=== PATIENT | female | born 1960 | race Caucasian/White ===

== ENCOUNTER → 2017-11-01 08:55 | Outpatient (CLI) | payer OTHER, SELFPAY ==
--- NOTE | 2017-11-01 09:02 | US_ITS ---
US thyroid HISTORY: Difficulty swallowing, thyromegaly ITS.REASON: THYROMEGALY ORDERING PHYSICIAN: Damari Greene PATIENT AGE: 57 years Comparison: None FINDINGS: The right lobe is 4.5 x 1.5 x 2 cm. 9 mm mostly cystic lesion upper pole 7 mm cyst lower pole Ill-defined hypoechoic nodule lower pole 7 mm The left lobe is 4.3 x 1.2 x 2.1 cm 6 mm cyst upper pole 5 mm iso to slightly hypoechoic nodule mid polar region IMPRESSION: Mildly enlarged thyroid gland with bilateral nodules with low-level suspicion of malignancy. Consider 6 month follow-up to confirm stability
== END ==
PROVIDERS: Family Provider Nurse Practitioner Family; PCP Family Medicine; Visit Provider Nurse Practitioner Family
DX: E01.0 Iodine-deficiency related diffuse (endemic) goiter (principal)
CPT/HCPCS: 76536

== ENCOUNTER → 2019-02-11 13:26 | Outpatient (POV) | payer OTHER, SELFPAY | PROVIDERS: Visit Provider Dermatology | DX: Z00.00 Encounter for general adult medical examination without abnormal findings (principal) ==

== ENCOUNTER 2023-06-13 11:00 | Outpatient (RCR) | payer OTHER, SELFPAY | END 2023-06-13 12:00 | disposition home or self-care (01) | LOC: OT 11:00 | PROVIDERS: Visit Provider Physician Assistant Medical | DX: M25.532 Pain in left wrist (principal); M67.834 Other specified disorders of tendon, left wrist; M77.8 Other enthesopathies, not elsewhere classified | CPT/HCPCS: 97010; 97014; 97035; 97140; 97165; G0283 ==

== ENCOUNTER 2024-04-29 16:29 | Outpatient (CLI) | payer MEDICARE, SELFPAY ==
--- OUTSIDE RECORDS SUMMARY | 2024-04-29 16:32 | XMS_ITS | Clinical Summary ---
Author Organization [facility] , [facility] Address [address] [place] [address] Phone Care Team Providers Care Assembler Watch Train Name Role Phone KATHLEEN DAVID Unavailable [phone] Ran Thomason MD Unavailable [phone] Reason for Visit and Chief Complaint The Chief Complaint is: left hand & wrist pain Problems Includes: Problems addressed during this encounter and other active Problems Current Visit Onset Date Resolved Date Provider Flori Sapp Joint Pain in the Left Wrist 2023 Usama ZEPEDA-Azeb Active Last Documented On 4 8:21AM ; [facility] Pain in the Left Hand Only 2023 Usama virgen PA-C Active Last Documented On 4 8:21AM ; [facility], [facility] Plan of Treatment Pending Tests Order Diagnosis Results Due Ordering P rovider Therapy - Occupational Therapy Hand Overweight 08/22 Usama Galloway PA-C Last Documented On 4 9:29AM ; [facility] Therapy - Occupational Therapy Wrist Overweight 08/22 Usama ZEPEDA-C Last Documented On 4 9:29AM ; [facility], [facility] Instructions to patient Lose weight Last Documented On 4 8:29AM ; [facility], [facility] Assessments Includes: Assessments from this encounter Findings - Overweight - Last Documented On 2023 1:01PM ; [facility], [facility] Instructions Includes: Instructions from this encounter Instructions to patient Lose weight Last Documented On 4 8:29AM ; [facility], [facility] Medical Equipment - Implanted Devices Includes: Current Devices No Medical Equipment Recorded Medications Includes: Medications discussed during this encounter and other current Medications Current Medications (continue as prescribed) Ozempic (1 MG/DOSE) 4 MG/3ML Subcutaneous Solution Pen-injector 08/20/2023 Provider: KATHLEEN DAVID Diagnosis: Last Documented On 4 8:27AM By Harleen Naik ; DHIRAJ BRODY Jardiance 25 MG Oral Tablet 06/29/2023 Provider: Diagnosis: Last Documented On 4 8:27AM By Harleen Naik ; [facility] Medications Administered Includes: Administered Medications from this encounter No Administered Medications Recorded Vital Signs Includes: Vital Signs from this encounter Vital Name 2023 08:28A Height (in) 66 Weight (lb) 190 Body Mass Index 30.7 Body Surface Area 2 Note: KL Last Documented: On 2023 8:28AM ; [facility] Results Includes: Results discussed during this encounter No Results Recorded For Specified Dates History of Present Illness Includes: History of Present Illness from this encounter HPI MILTON VILLAR is a 62 year old female. - Symptoms other not listed. - Allergy list reviewed - Medication list reviewed - Previous history of new onset pain 02/28/2023 - Pain is occasional (25% of the time) - Patient pain level from 1-10: 4 - Yes, previous treatment. MILTON ARMSTRONG - History of Physical Therapy 62-year-old female here for evaluation of her left wrist pain. This is work- related injury. 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 She has had volar ulnar-sided wrist pain since then. The patient states that she is done about 8 weeks of hand therapy which has provided no relief. Her pain is no better no worse. No numbness or tingling. 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 Social History Description Last Updated Caffeine use 2023 Last Documented On 4 1:01PM ; [facility], [facility] No recent change in diet 2023 Last Documented On 4 1:01PM ; DHIRAJ BRODY Not a current smoker. 2023 Last Documented On 4 1:01PM ; [facility] Not exercising regularly 2023 Last Documented On 4 1:01PM ; [facility], [facility] Not using alcohol 2023 Last Documented On 4 1:01PM ; [facility], [facility] Not using drugs 2023 Last Documented On 4 1:01PM ; [facility], [facility] Tobacco non-user 2023 Last Documented On 4 1:01PM ; [facility], [facility] Smoking Status Unknown Procedures and Surgical History Includes: Procedures from this encounter Procedures Code Diagnosis Performing Provider Service Location Service Date DRAIN/INJECT, JOINT/BURSA (LEFT) Pain in left [facility] 2023 Last Documented On 4 2:36PM ; [facility], [facility] Injection, betamethasone acetate 6mg per cc and betamethason J0702 Pain in left wrist Feliciano Levy MD [facility] 2023 Last Documented On 4 2:36PM ; [facility], [facility] Ultrasonic guidance for needle placement (LEFT, Distinct procedure) 72800 Pain in left wrist Feliciano Levy MD [facility] 2023 Last Documented On 4 2:36PM ; [facility], [facility] X-RAY EXAM OF WRIST 3-5 VIEWS (LEFT) 43276 Pain in left wrist [facility] 2023 Last Documented On 4 2:36PM ; [facility], [facility] use of tobacco assessment performed 1000F Last Documented On 4 8:29AM ; [facility], [facility] review of medications documented 1160F Last Documented On 4 8:29AM ; [facility], [facility] Surgical History Last Updated History of appendectomy 2023 Last Documented On 4 1:01PM ; [facility], [facility] Medical History Includes: Medical History addressed during this encounter Description Last Updated Past medical and surgical history non-co ntributory 2023 Last Documented On 4 1:01PM ; [facility] History of diabetes mellitus 2023 Last Documented On 4 1:01PM ; [facility] Family History Includes: Family History addressed during this encounter Description Last Updated Diabetes mellitus 2023 Last Documented On 4 1:01PM ; [facility] Review of Systems Includes: Review of Systems from this encounter Systemic: Not feeling tired, no recent weight loss, and no recent weight gain. Head: Headache. No sinus pain. Eyes: No vision problems, no Cataracts, no Glasses/Contacts, and no Glaucoma. Otolaryngeal: No hearing loss and no tinnitus. Cardiovascular: No chest pain or discomfort, no palpitations, no Hypertension, and no High Cholesterol. Pulmonary: No daytime asthma symptoms and no chronic cough. No wheezing. Gastrointestinal: No heartburn and no abdominal pain. No Indigestion, no Acid Reflux, no Peptic Ulcer, no GI Stomach Bleed, and no Ulcers. Endocrine: No hot flashes and no muscle weakness. Diabetes. No Hypothyroid and no Hyperthyroid. Hematologic: No easy bleeding, no tendency for easy bruising, and no Anemia. Musculoskeletal: No Arthritis. Lower back pain. No soft tissue swelling and no localized joint pain. Neurological: No dizziness, no convulsions, and no numbness. Psychological: No anxiety, no emotional lability, no depression, and no insomnia. Not crying for no reason. Skin: No dry skin. No Ulcers, no Scars, and no rash. Allergic and Immunologic: Complaint of seasonal allergic reaction. Mental Status Includes: Mental Status from this encounter Description No anxiety Functional Status Includes: Functional Status from this encounter No Functional Status Recorded Physical Exam Includes: Physical Exam from this encounter Allergies Includes: Active Allergies Substance Type Reaction Onset Date Resolved Date Statu s Sulfa Antibiotics Allergy 2023 A ctive Last Documented On 4 8:45AM ; [facility] microbid Allergy 2023 Active Last Documented On 4 8:45AM ; [facility] metFORMIN HCl Allergy 2023 Activ e Last Documented On 4 8:45AM ; [facility] Encounters Encounter Provider Location Date Check-In Time Check-Out Time Diagnosis WORK COMP Usama Galloway PA-C [facility] 4 8:18AM 9:26AM Overweight Insurance Includes: Active Insurance Policies Plan Name Member ID Group # Subscriber Relationship Effect farnaz Dates 1 - [facility] [employer] [place]. [id number] MILTON VILLAR Self 02/20/2023 - Unknown 2 - [employer] [id number] MILTON VILLAR Self Clinical Notes Includes: Clinical Notes from this encounter * Progress note Date Encounter Last Documented by 2023 WORK COMP Last documented on 2023; 1:01 PM, Usama Bowie; [facility], [facility] Active Problems & Conditions - Joint Pain in the Left Wrist - Pain in the Left Hand Only Chief Complaint The Chief Complaint is: Left hand & wrist pain. History of Present Illness MILTON VILLAR is a 62 year old female. - Symptoms other not listed. - Allergy list reviewed - Medication list reviewed - Previous history of new onset pain 02/28/2023 - Pain is occasional (25% of the time) - Patient pain level from 1-10: 4 - Yes, previous treatment. MILTON ARMSTRONG - History of Physical Therapy 62-year-old female here for evaluation of her left wrist pain. This is work- related injury. 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 She has had volar ulnar-sided wrist pain since then. The patient states that she is done about 8 weeks of hand therapy which has provided no relief. Her pain is no better no worse. No numbness or tingling. 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 Current Medication - Jardiance 25 MG Oral Tablet 90 days, 0 refills - Ozempic (1 MG/DOSE) 4 MG/3ML Subcutaneous Solution Pen-injector 84 days, 0 refills Past Medical/Surgical History Diagnoses: Diabetes mellitus Past medical and surgical history non-contributory. Surgical: - Appendectomy Social History Not a current smoker. Current diet: No recent change in diet. Caffeine use: Caffeine use. Tobacco use: Tobacco non-user. Alcohol: Not using alcohol. Drug Use: Not using drugs. Habits: Not exercising regularly. Allergies - metFORMIN HCl - microbid - Sulfa Antibiotics Family History Diabetes mellitus Review Of Systems Systemic: Not feeling tired, no recent weight loss, and no recent weight gain. Head: Headache. No sinus pain. Eyes: No vision problems, no Cataracts, no Glasses/Contacts, and no Glaucoma. Otolaryngeal: No hearing loss and no tinnitus. Cardiovascular: No chest pain or discomfort, no palpitations, no Hypertension, and no High Cholesterol. Pulmonary: No daytime asthma symptoms and no chronic cough. No wheezing. Gastrointestinal: No heartburn and no abdominal pain. No Indigestion, no Acid Reflux, no Peptic Ulcer, no GI Stomach Bleed, and no Ulcers. Endocrine: No hot flashes and no muscle weakness. Diabetes. No Hypothyroid and no Hyperthyroid. Hematologic: No easy bleeding, no tendency for easy bruising, and no Anemia. Musculoskeletal: No Arthritis. Lower back pain. No soft tissue swelling and no localized joint pain. Neurological: No dizziness, no convulsions, and no numbness. Psychological: No anxiety, no emotional lability, no depression, and no insomnia. Not crying for no reason. Skin: No dry skin. No Ulcers, no Scars, and no rash. Allergic and Immunologic: Complaint of seasonal allergic reaction. Physical Findings - Vitals taken 2023 08:28 am KL Height 66 in Weight 190 lbs Body Mass Index 30.7 kg/m2 Body Surface Area 2 m2 PHYSICAL EXAM: CONSTITUTIONAL: Well developed, well groomed, well nourished patient in no acute distress who appears stated age, height and weight. PSYCHIATRIC: The patient is alert and oriented to person, place, date and situation. Mood and affect are normal for current situation. NEUROLOGICAL: Sensation normal bilateral upper and lower extremities. LYMPHATIC: No pitting edema noted in the lower extremities. SKIN: No lesions noted on upper or lower extremities. Skin is dry, warm and with normal turgor. VASCULAR: No swelling in upper or lower extremities other than described below in extremity exam. Pulses normal in both upper (radial) extremities. GAIT AND STATION: Normal gait without assistive devices. Station normal. LEFT WRIST/HAND: Able to make a full composite fist Able to fully flex and extend all fingers Hand is warm and well perfused Sensation intact to light touch distally in all nerve distributions Tenderness to palpation over the FCU tendon and pisiform. Wrist active range of motion and is within normal limits 4+ out of 5 left ulnar deviation and flexion due to pain otherwise 5/5 User Defined 5 Three-view x-ray of the left wrist shows mild degenerative changes, carpal alignment is within normal limits, no obvious acute bony abnormality. 62-year-old female with left FCU tendinitis that started back in January 2023. She is tried 2 months of therapy, she has been using a thermoplastic wrist extension brace. The patient's symptoms are no better no worse than they were on the onset of injury. This is a work-related injury. I am recommending a left FCU steroid injection under ultrasound guidance, she agrees to proceed with this today. She will follow-up in 6 weeks for another clinical recheck. I will also make another referral for occupational therapy. She understands to avoid painful activity and to wear her brace to help rest the tendon. Limited, anatomic specific diagnostic ultrasound of the left wrist was performed with a 4-18 MHz linear array transducer. Ultrasound was utilized for needle guidance and placement. I visualized the structures of the ulnar volar wrist to include the FCU, pisiform and ulnar artery. The needle was placed superficial to the FCU tendon and I injected 0.5 cc of 1% lidocaine without epinephrine and 0.5 cc of betamethasone into the tendon sheath of the FCU. Assessment - Overweight Counseling/Education - Lose weight Plan StartCited - Overweight Therapy/Occupational Therapy: Hand, Wrist Instructions: See PT order attached EndCited Practice Management Use of tobacco assessment performed Review of medications documented. Care Team - KATHLEEN DAVID
--- OUTSIDE RECORDS SUMMARY | 2024-04-29 16:32 | XMS_ITS | Clinical Summary ---
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 Name Role Phone KATHLEEN DAVID Unavailable [phone] Ran Thomason MD Unavailable [phone] Reason for Visit and Chief Complaint The Chief Complaint is: left hand & wrist pain Problems Includes: Problems addressed during this encounter and other active Problems All Visits Onset Date Resolved Date Provider Condition S tatus Joint Pain in the Left Wrist 2023 Usama Galloway PA-C Active Last Documented On 4 8:21AM ; [facility] Pain in the Left Hand Only 2023 Usama virgen PA-C Active Last Documented On 4 8:21AM ; [facility] Plan of Treatment Instructions to patient Lose weight Last Documented On 4 8:45AM ; [facility] Assessments Includes: Assessments from this encounter Findings - Overweight - Last Documented On 10/04/2023 1:27PM ; [facility] Instructions Includes: Instructions from this encounter Instructions to patient Lose weight Last Documented On 4 8:45AM ; [facility] Medical Equipment - Implanted Devices Includes: Current Devices No Medical Equipment Recorded Medications Includes: Medications discussed during this encounter and other current Medications Current Medications (continue as prescribed) Ozempic (1 MG/DOSE) 4 MG/3ML Subcutaneous Solution Pen-injector 08/20/2023 Provider: KATHLEEN DAVID Diagnosis: Last Documented On 4 8:27AM By Harleen Naik ; [facility], [facility] Jardiance 25 MG Oral Tablet 06/29/2023 Provider: Diagnosis: Last Documented On 4 8:27AM By Harleen Naik ; [facility], [facility] Medications Administered Includes: Administered Medications from this encounter No Administered Medications Recorded Vital Signs Includes: Vital Signs from this encounter Vital Name 10/04/2023 08:46A Height (in) 66 Weight (lb) 190 Body Mass Index 30.7 Body Surface Area 2 Note: KL Last Documented: On 10/04/2023 8:46AM ; [facility], [facility] Results Includes: Results discussed during this encounter No Results Recorded For Specified Dates History of Present Illness Includes: History of Present Illness from this encounter HPI MILTON VILLAR is a 63 year old female. - Symptoms other not listed. - Allergy list reviewed - Problem list reviewed - Medication list reviewed - Previous history of new onset pain 02/28/2023 - Pain is occasional (25% of the time) - Patient pain level from 1-10: 4 - Yes, previous treatment. MILTON ARMSTRONG - History of Physical Therapy 63-year-old Female here for follow-up of her left FCU tendinitis. She had an ultrasound-guided FCU injection at last visit. The patient states she has had a robust improvement of her wrist pain. She is having no symptoms at this time. The patient was referred to hand therapy, but was unable to attend as she states that worker's comp did not confirm their approval of therapy. She feels ready to return to work. Social History Description Last Updated Caffeine use 2023 Last Documented On 4 8:45AM ; [facility], [facility] No recent change in diet 2023 Last Documented On 4 8:45AM ; [facility], [facility] Not a current smoker. 2023 Last Documented On 4 8:45AM ; [facility], [facility] Not exercising regularly 2023 Last Documented On 4 8:45AM ; [facility], [facility] Not using alcohol 2023 Last Documented On 4 8:45AM ; [facility], [facility] Not using drugs 2023 Last Documented On 4 8:45AM ; [facility], [facility] Tobacco non-user 2023 Last Documented On 4 8:45AM ; [facility] Smoking Status Unknown Procedures and Surgical History Includes: Procedures from this encounter Procedures Code Diagnosis Performing Provider Service L ocation Service Date use of tobacco assessment performed 1000F Last Documented On 4 8:45AM ; [facility] review of medications documented 1160F Last Documented On 4 8:45AM ; [facility] Surgical History Last Updated History of appendectomy 2023 Last Documented On 4 8:45AM ; [facility] Medical History Includes: Medical History addressed during this encounter Description Last Updated Past medical and surgical history non-co ntributory 2023 Last Documented On 4 8:45AM ; [facility] History of diabetes mellitus 2023 Last Documented On 4 8:45AM ; [facility] Family History Includes: Family History addressed during this encounter Description Last Updated Diabetes mellitus 2023 Last Documented On 4 8:45AM ; [facility] Review of Systems Includes: Review of [...] ctive Last Documented On 4 8:45AM ; [facility], [facility] microbid Allergy 2023 Active Last Documented On 4 8:45AM ; [facility], [facility] metFORMIN HCl Allergy 2023 Activ e Last Documented On 4 8:45AM ; [facility], [facility] Encounters Encounter Provider Location Date Check-In Time Check-Out Time Diagnosis WC FOLLOW UP/EST Usama Galloway PA-C [facility] 10/04/19 24 8:43AM 8:59AM Overweight Insurance Includes: Active Insurance Policies Plan Name Member ID Group # Subscriber Relationship Effect farnaz Dates 1 - [facility] [employer] [place] [id number] MILTON VILLAR Self 02/20/2023 - Unknown 2 - [employer] [id number] MILTON VILLAR Self Clinical Notes Includes: Clinical Notes from this encounter * Progress note Date Encounter Last Documented by 10/04/2023 WC FOLLOW UP/EST Last documented on 10/04/2023; 1:27 PM, Usama Galloway PA-C; [facility], [facility] Active Problems & Conditions - Joint Pain in the Left Wrist - Pain in the Left Hand Only Chief Complaint The Chief Complaint is: Left hand & wrist pain. History of Present Illness MILTON VILLAR is a 63 year old female. - Symptoms other not listed. - Allergy list reviewed - Problem list reviewed - Medication list reviewed - Previous history of new onset pain 02/28/2023 - Pain is occasional (25% of the time) - Patient pain level from 1-10: 4 - Yes, previous treatment. MILTON ARMSTRONG - History of Physical Therapy 63-year-old Female here for follow-up of her left FCU tendinitis. She had an ultrasound-guided FCU injection at last visit. The patient states she has had a robust improvement of her wrist pain. She is having no symptoms at this time. The patient was referred to hand therapy, but was unable to attend as she states that worker's comp did not confirm their approval of therapy. She feels ready to return to work. Current Medication - Jardiance 25 MG Oral [...] allergic reaction. Physical Findings - Vitals taken 10/04/2023 08:46 am KL Height 66 in Weight 190 [...] light touch distally in all nerve distributions NONTENDER TO PALPATION Flexion: 90 degrees Extension: 70 degrees Pronation: 90 degrees Supination: 90 degrees Strength: 5/5 wrist flexion, 5/5 extension, 5/5 supination, 5/5 pronation. 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 She had a robust improvement after the injection. 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 She is nontender. I will release her to work without restriction and she may follow up as needed moving forward. Assessment - Overweight Counseling/Education - Lose weight Practice Management Use of tobacco assessment performed Review of medications documented. Care Team - KATHLEEN DAVID
--- OUTSIDE RECORDS SUMMARY | 2024-04-29 16:32 | XMS_ITS | Clinical Summary ---
Author Organization [facility] Address [address] [place] [phone] Phone Care Team Providers Care Quality Control Scientist Name Role Phone JOANN KATHLEEN Unavailable [phone] Ran Thomason MD Unavailable [phone] Reason for Visit and Chief Complaint WC MRA Problems Includes: Problems addressed during this encounter and other active Problems All Visits Onset Date Resolved Date Provider Condition S tatus Joint Pain in the Left Wrist 2023 Usama Galloway PA-C Active Last Documented On 4 8:21AM ; [facility], [facility] Pain in the Left Hand Only 2023 Usama virgen PA-C Active Last Documented On 4 8:21AM ; [facility], [facility] Plan of Treatment No Plan of Treatment Recorded Assessments Includes: Assessments from this encounter No Assessments Recorded Medical Equipment - Implanted Devices Includes: Current Devices No Medical Equipment Recorded Medications Includes: Medications discussed during this encounter and other current Medications Current Medications (continue as prescribed) Ozempic (1 MG/DOSE) 4 MG/3ML Subcutaneous Solution Pen-injector 08/20/2023 Provider: KATHLEEN DAVID Diagnosis: Last Documented On 4 8:27AM By Harleen WALDROP [facility], [facility] Jardiance 25 MG Oral Tablet 06/29/2023 Provider: Diagnosis: Last Documented On 4 8:27AM [facility] Medications Administered Includes: Administered Medications from this encounter No Administered Medications Recorded Results Includes: Results discussed during this encounter No Results Recorded For Specified Dates History of Present Illness Includes: History of Present Illness from this encounter No History of Present Illness Recorded Social History No Social History Recorded - Smoking Status Unknown Procedures and Surgical History Includes: Procedures from this encounter Procedures Code Diagnosis Performing Provider Service Location Service Date mri upper extremity joint, with contrast (LEFT) 91150 Pain in left wrist Ayden Davalos MD [facility] 07/30/2023 Last Documented On 4 9:12AM ; [facility] INJECTION FOR WRIST X-RAY (LEFT, Distinct procedure) 12276 Pain in left wrist Ayden Davalos MD [facility] 07/30/2023 Last Documented On 4 9:12AM ; [facility] OMIPAQUE Q9965 Pain in left wrist Ayden Davalos MD [facility] 07/30/2023 Last Documented On 4 9:12AM ; [facility] Fluoroscopic guidance for needle placement (Distinct procedure) 24086 Pain in left wrist Ayden Davalos MD [facility] 07/30/2023 Last Documented On 4 9:12AM ; [facility] Medical History Includes: Medical History addressed during this encounter No Medical History Recorded Family History Includes: Family History addressed during this encounter No Family History Recorded Review of Systems Includes: Review of Systems from this encounter No Review of Systems Recorded Mental Status Includes: Mental Status from this encounter No Mental Status Recorded Functional Status Includes: Functional Status from this encounter No Functional Status Recorded Physical Exam Includes: Physical Exam from this encounter No Physical Exam Recorded Allergies Includes: Active Allergies Substance Type Reaction Onset Date Resolved Date Statu s Sulfa Antibiotics Allergy 2023 A ctive Last Documented On 4 8:45AM ; [facility] microbid Allergy 2023 Active Last Documented On 4 8:45AM ; [facility] metFORMIN HCl Allergy 2023 Activ e Last Documented On 4 8:45AM ; [facility] Encounters Encounter Provider Location Date Check-In Time Check- Out Time Diagnosis WC [facility] Ayden Davalos MD [facility] 4 1:49PM 2:39PM Insurance Includes: Active Insurance Policies Plan Name Member ID Group # Subscriber Relationship Effect farnaz Dates 1 - [facility] [employer] [id number] MILTON Mendoza 02/20/2023 - Unknown 2 - [employer] [id number] MILTON Mendoza Clinical Notes Includes: Clinical Notes from this encounter No Clinical Notes Recorded
--- OUTSIDE RECORDS SUMMARY | 2024-04-29 16:32 | XMS_ITS ---
Author Organization [facility] , [facility] Address [address] [place] [address] Phone Care Team Providers Care Rapid Extractor Operator Name Role Phone KATHLEEN DAVID Unavailable [phone] Ran Thomason MD Unavailable [phone] Problems Includes: Active, inactive, and resolved Problems All Visits Onset Date Resolved Date Provider Condition S tatus Joint Pain in the Left Wrist 2023 Usama Galloway PA-C Active Last Documented On 4 8:21AM ; [facility], [facility] Pain in the Left Hand Only 2023 Usama virgen PA-C Active Last Documented On 4 8:21AM ; [facility], [facility] Plan of Treatment Instructions to patient Lose weight Last Documented On 4 8:45AM ; [facility], [facility] Lose weight Last Documented On 4 8:29AM ; [facility], [facility] Assessments Includes: Assessments for all patient encounters Findings Encounter Date Overweight WC FOLLOW UP/EST with Usama darling PA-C 10/04/2023 Last Documented On 4 1:27PM ; [facility], [facility] Overweight WORK COMP with Usama Garcia 2023 Last Documented On 4 1:01PM ; [facility], [facility] Instructions Includes: Instructions for all patient encounters Instructions to patient Lose weight Last Documented On 4 8:45AM ; [facility], [facility] Lose weight Last Documented On 4 8:29AM ; [facility], [facility] Medical Equipment - Implanted Devices Includes: Current and historical Devices No Medical Equipment Recorded Medications Includes: Current and historical Medications Current Medications (continue as prescribed) Ozempic (1 MG/DOSE) 4 MG/3ML Subcutaneous Solution Pen-injector 08/20/2023 Provider: KATHLEEN DAVID Diagnosis: Last Documented On 4 8:27AM By Harleen Naik ; [facility] Jardiance 25 MG Oral Tablet 06/29/2023 Provider: Diagnosis: Last Documented On 4 8:27AM By Harleen Naik ; [facility] Medications Administered Includes: Administered Medications in patient's chart No Administered Medications Recorded Vital Signs Includes: Vital Signs from 04/29/2023 through 04/29/2024 Vital Name 10/04/2023 08:46A 2023 08: 28A Height (in) 66 66 Weight (lb) 190 190 Body Mass Index 30.7 30.7 Body Surface Area 2 2 Note: KL KL Last Documented: On 10/04/2023 8:46AM ; [facility] On 2023 8:28AM ; [facility], [facility] Results Includes: Results from 04/29/2023 through 04/29/2024 No Results Recorded For Specified Dates History of Present Illness History of Present Illness not supported for this document type No History of Present Illness Recorded Social History Description Last Updated Caffeine use 2023 Last Documented On 4 1:01PM ; [facility] No recent change in diet 2023 Last Documented On 4 1:01PM ; [facility] Not a current smoker. 2023 Last Documented On 4 1:01PM ; [facility], [facility] Not exercising regularly 2023 Last Documented On 4 1:01PM ; [facility], [facility] Not using alcohol 2023 Last Documented On 4 1:01PM ; [facility], [facility] Not using drugs 2023 Last Documented On 4 1:01PM ; [facility], [facility] Tobacco non-user 2023 Last Documented On 4 1:01PM ; [facility] Smoking Status Unknown Procedures and Surgical History Includes: Procedures from 04/29/2023 through 04/29/2024 Procedures Code Diagnosis Performing Provider Service Location Service Date DRAIN/INJECT, JOINT/BURSA (LEFT) Pain in left wrist Feliciano Levy MD [facility] 2023 Last Documented On 4 2:36PM ; [facility], [facility] Injection, betamethasone acetate 6mg per cc and betamethason J0702 Pain in left wrist Feliciano Levy MD [facility] 2023 Last Documented On 4 2:36PM ; [facility], [facility] X-RAY EXAM OF WRIST 3-5 VIEWS (LEFT) 95110 Pain in left wrist Feliciano Levy MD [facility] 2023 Last Documented On 4 2:36PM ; [facility], [facility] Ultrasonic guidance for needle placement (LEFT, Distinct procedure) 78626 Pain in left wrist Feliciano Levy MD [facility] 2023 Last Documented On 4 2:36PM ; [facility], [facility] mri upper extremity joint, with contrast (LEFT) 06471 Pain in left wrist Ayden Davalos MD [facility] 07/30/2023 Last Documented On 4 9:12AM ; [facility], [facility] INJECTION FOR WRIST X-RAY (LEFT, Distinct procedure) 37214 Pain in left wrist Ayden Davalos MD [facility] 07/30/2023 Last Documented On 4 9:12AM ; [facility] OMIPAQUE Q9965 Pain in left wrist Ayden Davalos MD [facility] 07/30/2023 Last Documented On 4 9:12AM ; [facility], [facility] Fluoroscopic guidance for needle placement (Distinct procedure) 63768 Pain in left wrist Ayden Davalos MD [facility] 07/30/2023 Last Documented On 4 9:12AM ; [facility], [facility] Surgical History Last Updated History of appendectomy 2023 Last Documented On 4 1:01PM ; [facility], [facility] Medical History Includes: Medical History in patient's chart Description Last Updated Past medical and surgical history non-co ntributory 2023 Last Documented On 4 1:01PM ; [facility] History of diabetes mellitus 2023 Last Documented On 4 1:01PM ; [facility] Family History Includes: Family History in patient's chart Description Last Updated Diabetes mellitus 2023 Last Documented On 4 1:01PM ; [facility] Review of Systems Review of Systems not supported for this document type No Review of Systems Recorded Mental Status Description No anxiety Functional Status No Functional Status Recorded Physical Exam Physical Exam not supported for this document type No Physical Exam Recorded Allergies Includes: Active, inactive, and resolved Allergies Substance Type Reaction Onset Date Resolved Date Statu s Sulfa Antibiotics Allergy 2023 A ctive Last Documented On 4 8:45AM ; [facility] microbid Allergy 2023 Active Last Documented On 4 8:45AM ; [facility] metFORMIN HCl Allergy 2023 Activ e Last Documented On 4 8:45AM ; [facility] Encounters Includes: Encounters from 04/29/2023 through 04/29/2024 Encounter Provider Location Date Check-In Time Check-Out Time Diagnosis WC FOLLOW UP/EST Usama Galloway PA-C [facility] 10/04/19 24 8:43AM 8:59AM Overweight WORK COMP Usama Galloway PA-C [facility] 08/23/19 24 8:18AM 9:26AM Overweight WC MRA yAden Davalos MD [facility] 07/30/19 24 1:49PM 2:39PM Injections for MRA [facility] 07/30/19 24 1:49PM 11:59PM Insurance Includes: Active Insurance Policies Plan Name Member ID Group # Subscriber Relationship Effect farnaz Dates 1 - [employer] [id number] MILTON Mendoza 02/20/2023 - Unknown 2 - [employer] [id number] MILTON Mendoza Clinical Notes Includes: Signed Clinical Notes starting from 06/01/2022 * Progress note Date Encounter Last Documented by 10/04/2023 WC FOLLOW UP/EST Last documented on 10/04/2023; 1:27 PM, Usama Galloway PA-C; [facility], [facility] Active Problems & Conditions - Joint Pain [...] 5/5 extension, 5/5 supination, 5/5 pronation. Right slate mixer 65 lb (dominant hand) Left slate mixer 60 lb User Defined 5 63-year-old female with resolved left FCU tendinitis. She had a robust improvement after the injection. She is excellent slate mixer strength on the left. She is nontender. I will release her to work without restriction and she may follow up as needed moving forward. Assessment - Overweight Counseling/Education - Lose weight Practice Management Use of tobacco assessment performed Review of medications documented. Care Team - KATHLEEN DAVID * Progress note Date Encounter Last Documented by 2023 WORK COMP Last documented on 2023; 1:01 PM, Usama Bowie; [facility], [facility] Active Problems & Conditions - Joint Pain [...]
--- OUTSIDE RECORDS SUMMARY | 2024-04-29 16:32 | XMS_ITS ---
Care Plan - [facility] Created on: April 29, 2024 MILTON VILLAR : 1960 Sex: Female Author Organization [facility] Address [address] [place] [address] Phone Care Team Providers Care Tombstone Polisher Name Role Phone KATHLEEN DAVID Unavailable [phone] Paddy JAMES, Ran Larkin Unavailable [phone]
--- OUTSIDE RECORDS SUMMARY | 2024-04-29 16:32 | XMS_ITS | Clinical Summary ---
Author Organization [facility] , [facility] Address [address] [place] [phone] Phone Care Team Providers Care Repair Armature Winder Name Role Phone KATHLEEN DAVID Unavailable [phone] Ran Thomason MD Unavailable [phone] Reason for Visit and Chief Complaint Injections for MRA Problems Includes: Problems addressed during this encounter and other active Problems All Visits Onset Date Resolved Date Provider Condition S tatus Joint Pain in the Left Wrist 2023 Usama Galloway PA-C Active Last Documented On 4 8:21AM ; [facility] Pain in the Left Hand Only 2023 Usama virgen PA-C Active Last Documented On 4 8:21AM ; [facility], [facility] Plan of Treatment No Plan of [...] Last Documented On 4 8:27AM By Harleen Vasquez [facility], [facility] Jardiance 25 MG Oral Tablet 06/29/2023 Provider: Diagnosis: Last Documented On 4 8:27AM By Harleen Vasquez [facility], [facility] Medications Administered Includes: Administered Medications from this encounter No Administered Medications Recorded Results Includes: Results discussed during this encounter No Results Recorded For Specified Dates History of Present Illness Includes: History of Present Illness from this encounter No History of Present Illness Recorded Social History No Social History Recorded - Smoking Status Unknown Medical History Includes: Medical History addressed during [...] ctive Last Documented On 4 8:45AM ; [facility], [facility] microbid Allergy 2023 Active Last Documented On 4 8:45AM ; [facility] metFORMIN HCl Allergy 2023 Activ e Last Documented On 4 8:45AM ; [facility] Encounters Encounter Provider Location Date Check-In Time Check-Out Time Diagnosis Injections for MRA [facility] 4 1:49PM 11:59PM Insurance Includes: Active Insurance Policies Plan Name Member ID Group # Subscriber Relationship Effect farnaz Dates 1 - [facility] [employer] [id number] MILTON Mendoza 02/20/2023 - Unknown 2 - [employer] [id number] MILTON Mendoza Clinical Notes Includes: Clinical Notes from this encounter No Clinical Notes Recorded
[2024-04-29 18:55] LABS: Hemoglobin A1C 7.6 % (4.0-6.0)
[2024-04-29 18:59] LABS: Alanine Aminotransferase 38 U/L (12-78); Albumin Level 4.7 g/dl (3.5-5.0); Anion Gap 17.7 mEq/L (5-15); Aspartate Amino Transferase 36 U/L (14-36); Bilirubin,Total 0.6 mg/dl (0.2-1.3); Blood Urea Nitrogen 19 mg/dl (7-17); Calcium 9.6 mg/dl (8.4-10.2); Carbon Dioxide 22 mmol/L (22.0-30.0); Chloride 102 mmol/L (98-107); Estimated Glomerular Filt Rate 72 ml/min (>60); GFR (African American) 87 ML/MIN (>60); Glucose 132 mg/dl (74-100); Potassium 4.7 mmoL/L (3.5-5.1); Sodium 137 mmol/L (136-145); Total Protein,Serum 7.5 g/dl (6.3-8.2)
[2024-04-29 19:00] LABS: Albumin/Globulin Ratio 1.7 (1.1-1.8); Alkaline Phosphatase 74 U/L (38-126); Globulin 2.8 g/dL (1.3-3.2)
[2024-04-29 19:33] LABS: Thyroid Stimulating Hormone 2.11 uIU/mL (0.465-4.68)
[2024-04-29 19:37] LABS: Ferritin 51.1 ng/ml (11.1-264)
[2024-04-30 17:26] LABS: Creatinine,Urine Random 90 mg/dL (Not Estab.)
[2024-04-30 17:28] LABS: Microalbumin/Creatinine Ratio 35.6
== END 2024-04-29 23:59 | disposition home or self-care (01) ==
LOC: RT 16:30
PROVIDERS: PCP Nurse Practitioner Family; Visit Provider Nurse Practitioner Family
DX: R00.2 Palpitations (principal); E11.9 Type 2 diabetes mellitus without complications; K21.9 Gastro-esophageal reflux disease without esophagitis
CPT/HCPCS: 80053; 82043; 82570; 82728; 83036; 84443; 93225; 93226

== ENCOUNTER 2024-04-30 16:00 | Outpatient (CLI) | payer MEDICARE, SELFPAY | END 2024-04-30 23:59 | disposition home or self-care (01) | LOC: LAB.DROPOF 05-01 11:45 | PROVIDERS: PCP Nurse Practitioner Family; Visit Provider Nurse Practitioner Family | DX: Z02.9 Encounter for administrative examinations, unspecified (principal) ==

== ENCOUNTER 2024-05-05 09:48 | Outpatient (CLI) | payer MEDICARE, SELFPAY | END 2024-05-05 23:59 | disposition home or self-care (01) | LOC: RT 09:49 | PROVIDERS: PCP Nurse Practitioner Family; Visit Provider Nurse Practitioner Family | DX: R00.2 Palpitations (principal) | CPT/HCPCS: 93225; 93227 ==

== ENCOUNTER 2024-07-25 13:29 | Outpatient (CLI) | payer MEDICARE, SELFPAY ==
[2024-07-25 13:17] LABS: Basophils # 0.1 K/mm3 (0-0.2); Basophils % 0.6 % (0.1-2.0); Eosinophils # 0.1 K/mm3 (0.0-0.4); Eosinophils % 1.4 % (0.1-12.0); Hematocrit 49.4 % (37.0-47.0); Lymphocytes # 2.6 K/mm3 (0.7-4.5); Lymphocytes % 30.7 % (10-50); Mean Corpuscular HGB Conc 32.4 g/dL (31.8-35.4); Mean Corpuscular Hemoglobin 29.3 pg (27.0-31.2); Mean Corpuscular Volume 90.5 fl (81-99); Mean Platelet Volume 10.3 fl (7.4-10.4); Monocytes # 0.6 K/mm3 (0.1-1.0); Monocytes % 6.6 % (1.7-9.3); Neutrophils % 60.1 % (37.0-80.0); Platelet Count 327 K/mm3 (142-424); Red Blood Count 5.46 M/mm3 (4.20-5.40); Red Cell Distribution Width 13.1 % (11.5-17.5); White Blood Count 8.3 K/mm3 (4.8-10.8)
[2024-07-25 13:33] LABS: Chloride 100 mmol/L (98-107); Sodium 137 mmol/L (136-145)
[2024-07-25 13:36] LABS: Alanine Aminotransferase 46 U/L (12-78); Albumin/Globulin Ratio 1.8 (1.1-1.8); Alkaline Phosphatase 97 U/L (38-126); Aspartate Amino Transferase 45 U/L (14-36); Bilirubin,Total 0.5 mg/dl (0.2-1.3); Blood Urea Nitrogen 18 mg/dl (7-17); Calcium 9.6 mg/dl (8.4-10.2); Carbon Dioxide 25 mmol/L (22.0-30.0); Chol/HDL Ratio 5.4 (1-3.5); Cholesterol 270 mg/dl (140-200); Estimated Glomerular Filt Rate 72 ml/min (>60); GFR (African American) 87 ML/MIN (>60); Globulin 2.8 g/dL (1.3-3.2); Glucose 168 mg/dl (74-100); HDL Cholesterol 50 mg/dl (40-60); Total Protein,Serum 7.8 g/dl (6.3-8.2); Triglycerides 268 mg/dl (30-150); VLDL Cholesterol 54 mg/dL (0-40)
[2024-07-25 13:45] LABS: Hemoglobin A1C 7.8 % (4.0-6.0)
[2024-07-25 13:47] LABS: Direct LDL Cholesterol 178.13 mg/dL (100-129)
[2024-07-25 14:08] LABS: Thyroid Stimulating Hormone 2.35 uIU/mL (0.465-4.68)
[2024-07-25 14:12] LABS: Ferritin 53.5 ng/ml (11.1-264)
[2024-07-25 14:45] LABS: Vitamin B12 426 pg/mL (239-931)
[2024-07-26 10:13] LABS: Triiodothyronine (T3) Free 3.3 pg/mL (2.0-4.4)
== END 2024-07-25 23:59 | disposition home or self-care (01) ==
LOC: LAB.DROPOF 13:29
PROVIDERS: PCP Nurse Practitioner Family; Visit Provider Nurse Practitioner Family
DX: E11.9 Type 2 diabetes mellitus without complications (principal); R20.0 Anesthesia of skin; R20.2 Paresthesia of skin; R00.2 Palpitations; I47.10 Supraventricular tachycardia, unspecified
CPT/HCPCS: 80053; 80061; 82607; 82728; 83036; 84443; 84481; 85025

== ENCOUNTER 2024-10-21 15:16 | Outpatient (CLI) | payer MEDICARE, SELFPAY ==
[2024-10-21 14:26] LABS: Alanine Aminotransferase 41 U/L (12-78); Albumin/Globulin Ratio 1.9 (1.1-1.8); Alkaline Phosphatase 99 U/L (38-126); Anion Gap 13.2 mEq/L (5-15); Aspartate Amino Transferase 38 U/L (14-36); Bilirubin,Total 0.8 mg/dl (0.2-1.3); Blood Urea Nitrogen 18 mg/dl (7-17); Calcium 9.6 mg/dl (8.4-10.2); Carbon Dioxide 26 mmol/L (22.0-30.0); Chloride 102 mmol/L (98-107); Chol/HDL Ratio 3.5 (1-3.5); Cholesterol 169 mg/dl (140-200); Estimated Glomerular Filt Rate 84 ml/min (>60); GFR (African American) 101 ML/MIN (>60); Globulin 2.6 g/dL (1.3-3.2); Glucose 147 mg/dl (74-100); HDL Cholesterol 48 mg/dl (40-60); Magnesium 2.3 mg/dl (1.6-2.3); Potassium 5.2 mmoL/L (3.5-5.1); Sodium 136 mmol/L (136-145); Total Protein,Serum 7.6 g/dl (6.3-8.2); Triglycerides 204 mg/dl (30-150); VLDL Cholesterol 41 mg/dL (0-40)
[2024-10-21 14:28] LABS: Microalbumin/Creatinine Ratio 14.3
[2024-10-21 14:37] LABS: Direct LDL Cholesterol 80.29 mg/dL (100-129)
[2024-10-21 14:47] LABS: Creatinine,Urine Random 44 mg/dL (Not Estab.)
[2024-10-21 14:58] LABS: Hemoglobin A1C 8.4 % (4.0-6.0); Thyroid Stimulating Hormone 0.02 uIU/mL (0.465-4.68)
== END 2024-10-21 23:59 | disposition home or self-care (01) ==
LOC: LAB.DROPOF 15:16
PROVIDERS: PCP Nurse Practitioner Family; Visit Provider Nurse Practitioner Family
DX: R00.2 Palpitations (principal); E11.9 Type 2 diabetes mellitus without complications
CPT/HCPCS: 80053; 80061; 82043; 82570; 83036; 83735; 84443

== ENCOUNTER 2024-11-17 10:08 | Outpatient (CLI) | payer MEDICARE, SELFPAY ==
[2024-11-17 15:32] LABS: Free T4 (Free Thyroxine) 1.13 ng/dl (0.78-2.19)
[2024-11-17 15:35] LABS: T4 (Thyroxine) 8.6 ug/dl (5.53-11.0)
[2024-11-17 15:48] LABS: Thyroid Stimulating Hormone 2.34 uIU/mL (0.465-4.68)
[2024-11-18 08:13] LABS: Thyroid Peroxidase Antibodies 11 IU/mL (0-34); Triiodothyronine (T3) Free 3.6 pg/mL (2.0-4.4)
[2024-11-18 17:34] LABS: Thyroglobulin Level <1.0 IU/mL (0.0-0.9)
== END 2024-11-17 23:59 | disposition home or self-care (01) ==
LOC: LAB.DROPOF 11-18 11:30
PROVIDERS: PCP Nurse Practitioner Family; Visit Provider Nurse Practitioner Family
DX: R79.89 Other specified abnormal findings of blood chemistry (principal)
CPT/HCPCS: 84436; 84439; 84443; 84481; 86376; 86800

== ENCOUNTER 2025-01-21 09:52 | Outpatient (CLI) | payer MEDICARE, SELFPAY ==
[2025-01-21 14:41] LABS: Alanine Aminotransferase 39 U/L (12-78); Albumin Level 4.9 g/dl (3.5-5.0); Albumin/Globulin Ratio 1.5 (1.1-1.8); Alkaline Phosphatase 93 U/L (38-126); Anion Gap 18.3 mEq/L (5-15); Aspartate Amino Transferase 34 U/L (14-36); Bilirubin,Total 0.6 mg/dl (0.2-1.3); Blood Urea Nitrogen 17 mg/dl (7-17); Calcium 9.6 mg/dl (8.4-10.2); Carbon Dioxide 24 mmol/L (22.0-30.0); Chloride 99 mmol/L (98-107); Cholesterol 286 mg/dl (140-200); Creatinine,Serum 0.70 mg/dl (0.52-1.04); Estimated Glomerular Filt Rate 84 ml/min (>60); GFR (African American) 101 ML/MIN (>60); Globulin 3.3 g/dL (1.3-3.2); Glucose 123 mg/dl (74-100); HDL Cholesterol 49 mg/dl (40-60); Magnesium 2.1 mg/dl (1.6-2.3); Potassium 5.3 mmoL/L (3.5-5.1); Sodium 136 mmol/L (136-145); Total Protein,Serum 8.2 g/dl (6.3-8.2); Triglycerides 331 mg/dl (30-150)
[2025-01-21 17:15] LABS: Hemoglobin A1C 7.8 % (4.0-6.0)
--- OUTSIDE RECORDS SUMMARY | 2025-01-22 13:50 | XMS_ITS | Clinical Summary ---
Author Organization [facility] Address [address], [address] [place] [address] Care Team Providers Care Direct Service Professional Name Role Phone Damari Greene APRN - JOHN Primary Care Provider Unavailable Social History Tobacco Use Types Packs/Day Years Used Date Smoking Tobacco: Never Smokeless Tobacco: Never Comments No Sex and Gender Information Value Date Recorded Sex Assigned at Not on file Legal Sex Female 1:46 PM EDT Gender Identity Not on file Sexual Orientation Not on file Last Filed Vital Signs Vital Sign Reading Time Taken Comments Blood Pressure - - Pulse - - Temperature - - Respiratory Rate - - Oxygen Saturation - - Inhaled Oxygen Concentration - - Weight 84.4 kg (186 lb) 03/09/2021 3:46 PM EDT Height 167.6 cm (5' 6 ) 03/09/2021 3:46 PM EDT Body Mass Index 30.02 03/09/2021 3:46 PM EDT Plan of Treatment Not on file Insurance [employer] Care Teams Direct Service Professional Relationship Specialty Start Date End Date Damari Greene APRN - NP PCP - General 03/03/21
== END 2025-01-21 23:59 | disposition home or self-care (01) ==
LOC: LAB.DROPOF 01-22 13:49
PROVIDERS: PCP Nurse Practitioner Family; Visit Provider Nurse Practitioner Family
DX: E11.9 Type 2 diabetes mellitus without complications (principal)
CPT/HCPCS: 80053; 80061; 83036; 83735